=== PATIENT | female | born 1995 | race Caucasian/White ===

== ENCOUNTER 2020-12-31 09:43 | Emergency (ER) | payer MEDICAID ==
[~2020-12-31] VITALS: Ht 165.1 cm; Wt 56.9 kg
[2020-12-31 09:44] VITALS: BP 121/93
--- NOTE | 2020-12-31 09:55 | NUR ---
PT AMBULATED TP BED 4
[2020-12-31 10:03] VITALS: BP 121/93
--- NOTE | 2020-12-31 10:51 | NUR ---
Patient discharged with v/s stable. Written and verbal after care instructions given and explained. Patient verbalized understanding. Ambulatory with steady gait. All questions addressed prior to discharge. Advised to follow up with PMD.
--- NOTE | 2020-12-31 10:52 | NUR ---
Chart checked and completed. The patient's care was reviewed and supervised by Stephenie Salamanca RN.
== END 2020-12-31 10:50 | disposition home or self-care (01) ==
LOC: MED 09:43
DX: S00.431A Contusion of right ear, initial encounter (principal); W17.89XA Other fall from one level to another, initial encounter; Y93.89 Activity, other specified; Y92.89 Other specified places as the place of occurrence of the external cause; Y99.8 Other external cause status
CPT/HCPCS: 81002; 81025; 99282